=== PATIENT | female | born 1995 | race Caucasian/White ===

== ENCOUNTER 2017-01-04 18:22 | Emergency (ER) | payer OTHER ==
[~2017-01-04] VITALS: Ht 157.5 cm; Wt 53.8 kg
[2017-01-04 18:39] VITALS: TEMP 37.1; O2SAT 100; Ht 157.5 cm; Wt 53.8 kg
[2017-01-04 19:14] LABS: POINT OF CARE TROPONIN I < 0.030 ng/ml (0-0.045)
[2017-01-04 19:15] LABS: BASO % 0.6 %; BASO ABS # 0.06 K/uL (0-0.2); COMPLETE YES; EOS % 7.9 %; HEMATOCRIT 40.6 % (37-47); IG% 0.2 %; LYMPH % 24.7 %; LYMPH ABS # 2.64 K/uL (1.2-3.4); MEAN CELL VOLUME 85.1 fL (80-100); MEAN CORPUSCULAR HEMOGLOBIN 29.4 pg (25-34); MEAN CORPUSCULAR HGB CONC 34.5 g/dl (32-36); MEAN PLATELET VOLUME 10.7 fL (7.4-10.4); MONO % 8.5 %; NEUT % 58.1 %; PLATELET COUNT 247 K/uL (130-400); RED BLOOD COUNT 4.77 M/uL (4.2-5.4); WHITE BLOOD COUNT 10.68 K/uL (4.8-10.8)
[2017-01-04 19:26] LABS: PARTIAL THROMBOPLASTIN RATIO 1.2; PROTHROMBIN TIME (PATIENT) 10.4 SECONDS (9.0-12.0)
--- NOTE | 2017-01-04 19:30 | DIAGNOSTIC IMAGING REPORT ---
CHEST 2 VIEWS ROUTINE HISTORY: 21 years-old Female eval for pna acute atypical chest and back pain with shortness of breath. COMPARISON: None available TECHNIQUE: Frontal and lateral views of the chest FINDINGS: Cardiomediastinal and hilar silhouettes are within normal limits. No pneumothorax, pleural effusion, focal airspace consolidation or overt pulmonary edema. Bones of the chest are grossly intact. IMPRESSION: No acute cardiopulmonary process. No lobar airspace consolidation to suggest pneumonia. The above report was generated using voice recognition software. It may contain grammatical, syntax or spelling errors. Electronically signed by: Chong Hwang M.D. 01/04/2017 7:28 PM Dictated Date/Time: 01/04/2017 7:27 PM
[2017-01-04 19:32] LABS: BUN/CREATININE RATIO 11.5 (10-20); CALCIUM 9.3 mg/dl (8.5-10.1); CREATININE 0.7 mg/dl (0.60-1.20); POTASSIUM 3.7 mmol/L (3.5-5.1)
[2017-01-04] MEDS ORDERED: AZITTAB PO (19:44)
[2017-01-04] MEDS ORDERED: SERT-234 PO (19:54)
[2017-01-04] MEDS ORDERED: BCPILLS PO (19:54)
[2017-01-04 19:58] VITALS: BP 115/76; PULSE 88; O2SAT 98
--- NOTE | 2017-01-04 20:35 | EMERGENCY ROOM VISIT NOTE ---
History Report prepared by Tera: Raffi Haji Under the Supervision of: Dr. Ugo Servin M.D. First contact with patient: 18:41 Chief Complaint: CHEST PAIN Stated Complaint: CHEST PAIN,BACK PAIN,SOB Nursing Triage Summary: Pt reports chest pain since this morning. Feels hard to breath at times. Pt reports cough and congestion for "awhile." History of Present Illness The patient is a 21 year old female who presents to the Emergency Room with complaints of constant centralized chest pain beginning two days ago. Her pain worsened yesterday. Her pain radiates into her back. The patient also complains of a productive cough. Her cough produces a green-yellow sputum. She has had a cough for about 1.5 weeks and states that coughing worsens her pain. The patient describes her pain as a feeling of "tightness". She denies fevers, or leg pain or swelling. She is on control. The patient has no personal of blood clots. Her LNMP was a few weeks ago and was normal timing. She denies any recent prolonged immobilization. Source of History: patient Onset: Two days ago Position: chest (centralized) Quality: other ("tightness") Timing: constant Associated Symptoms: + cough (productive), No fevers Note: The patient denies any leg pain or swelling. Review of Systems See HPI for pertinent positives & negatives. A total of 10 systems reviewed and were otherwise negative. Past Medical & Surgical Medical Problems: (1) No Known Active Medical Problems Family History No pertinent family history stated. Social History Smoking Status: Never Smoker Occupation Status: [employer] student Current/Historical Medications Scheduled Azithromycin (Zithromax Z-Nick), 1 PKT PO UD Control Pills ( Control Pills), 1 TAB PO DAILY Sertraline (Zoloft), 100 MG PO DAILY Allergies Coded Allergies: Iodinated Diagnostic Agents (Unverified Allergy, Unknown, THROAT CLOSES, 01/04/17) Physical Exam Vital Signs Date Time Temp Pulse Resp B/P (MAP) Pulse Ox O2 Delivery O2 Flow Rate FiO2 01/04/17 19:58 88 16 115/76 98 01/04/17 19:21 82 01/04/17 18:39 100 Room Air 01/04/17 18:39 37.1 99 20 159/109 100 Room Air 01/04/17 18:39 100 T-piece Physical Exam Constitutional: Vital signs reviewed. Eyes: Pupils are equal round reactive to light. Conjunctiva are noninjected. ENT: Pharynx is clear without erythema or exudate. Mucous membranes are moist. Neck supple without meningeal signs. Respiratory: Clear to auscultation bilaterally. Breath sounds are equal bilaterally. Cardiovascular: Regular rate and rhythm. No rubs or gallops. GI: Soft, nondistended and nontender. Bowel sounds are present. Musculoskeletal: No peripheral edema. No lower extremity tenderness. Anterior chest wall tenderness to palpation. Integumentary: No cyanosis. Neurological: The patient is awake and alert. No focal deficits. Psychiatric: Normal affect. Medical Decision & Procedures ER Provider Diagnostic Interpretation: X-ray results as stated below per interpretation by me and the radiologist: CHEST 2 VIEWS ROUTINE FINDINGS: Cardiomediastinal and hilar silhouettes are within normal limits. No pneumothorax, pleural effusion, focal airspace consolidation or overt pulmonary edema. Bones of the chest are grossly intact. IMPRESSION: No acute cardiopulmonary process. No lobar airspace consolidation to suggest pneumonia. The above report was generated using voice recognition software. It may contain grammatical, syntax or spelling errors. Electronically signed by: Chong Hwang M.D. 01/04/2017 7:28 PM Laboratory Results 01/04/17 18:50 Red Blood Count 4.77, Mean Corpuscular Volume 85.1, Mean Corpuscular Hemoglobin 29.4, Mean Corpuscular Hemoglobin Concent 34.5, Mean Platelet Volume 10.7, Neutrophils (%) (Auto) 58.1, Lymphocytes (%) (Auto) 24.7, Monocytes (%) (Auto) 8.5, Eosinophils (%) (Auto) 7.9, Basophils (%) (Auto) 0.6, Neutrophils # (Auto) 6.21, Lymphocytes # (Auto) 2.64, Monocytes # (Auto) 0.91, Eosinophils # (Auto) 0.84, Basophils # (Auto) 0.06 01/04/17 18:50 Test 01/04/17 18:46 01/04/17 18:50 01/04/17 18:55 White Blood Count 10.68 K/uL (4.8-10.8) Red Blood Count 4.77 M/uL (4.2-5.4) Hemoglobin 14.0 g/dL (12.0-16.0) Hematocrit 40.6 % (37-47) Mean Corpuscular Volume 85.1 fL (80-100) Mean Corpuscular Hemoglobin 29.4 pg (25-34) Mean Corpuscular Hemoglobin Concent 34.5 g/dl (32-36) Platelet Count 247 K/uL (130-400) Mean Platelet Volume 10.7 fL (7.4-10.4) Neutrophils (%) (Auto) 58.1 % Lymphocytes (%) (Auto) 24.7 % Monocytes (%) (Auto) 8.5 % Eosinophils (%) (Auto) 7.9 % Basophils (%) (Auto) 0.6 % Neutrophils # (Auto) 6.21 K/uL (1.4-6.5) Lymphocytes # (Auto) 2.64 K/uL (1.2-3.4) Monocytes # (Auto) 0.91 K/uL (0.11-0.59) Eosinophils # (Auto) 0.84 K/uL (0-0.5) Basophils # (Auto) 0.06 K/uL (0-0.2) RDW Standard Deviation 41.2 fL (36.4-46.3) RDW Coefficient of Variation 13.3 % (11.5-14.5) Immature Granulocyte % (Auto) 0.2 % Immature Granulocyte # (Auto) 0.02 K/uL (0.00-0.02) Prothrombin Time 10.4 SECONDS (9.0-12.0) Prothromb Time International Ratio 1.0 (0.9-1.1) Activated Partial Thromboplast Time 32.0 SECONDS (21.0-31.0) Partial Thromboplastin Ratio 1.2 Anion Gap 8.0 mmol/L (3-11) Est Creatinine Clear Calc Drug Dose 101.4 ml/min Estimated GFR () 144.6 Estimated GFR (Non- 124.7 BUN/Creatinine Ratio 11.5 (10-20) Calcium Level 9.3 mg/dl (8.5-10.1) Bedside D-Dimer 191 ng/mlFEU (0-450) Bedside Troponin I < 0.030 ng/ml (0-0.045) Laboratory results as reviewed by me. ECG Indication: chest pain Rate (beats per minute): 89 Rhythm: normal sinus Findings: no acute ischemic change, no ectopy ED Course 1841: The patient was evaluated in room A10. A complete history and physical exam was performed. 1934: Upon reevaluation, the patient appeared to have improvement of her symptoms. I discussed mahendra's findings with her. She verbalized agreement of the treatment plan. She prefers to go home on antibiotics. The patient was discharged home. Medical Decision This is a 21-year-old female who presents with chest pain and cough. Differential diagnosis includes acute bronchitis, pleurisy, pericarditis, pneumonia, pulmonary embolism. I did perform a limited focused review of portions of the patient's old chart on the electronic medical record. The patient has had no prior visits to this hospital. I did evaluate the patient as noted above. The patient is presenting with a cough for the past 1-1/2 weeks. It is productive. She also complains of chest pain which is reproducible on palpation. Her only risk factors for pulmonary embolism is control pill use. IV access was established. The patient was placed on a continuous simulation developer. I did order and personally review the patient's 12-lead EKG and chest x-ray as described above. I did order and review the patient's blood work as noted in the electronic medical record. D- dimer and troponin are negative. I did discuss the test results with the patient. She likely has a bronchitis. I did discuss the possibility of antibiotics given her prolonged symptoms. She elected to be treated with antibiotics after discussion with her. She was discharged with a prescription for Zithromax. She will follow up with [facility]. Impression Primary Impression: Bronchitis Additional Impression: Chest wall pain Scribe Attestation The scribe's documentation has been prepared under my direct and personally reviewed by me in its entirety. I confirm that the note above accurately reflects all work, treatment, procedures, and medical decision making performed by me. Departure Information Dispostion Home / Self-Care Prescriptions Azithromycin (ZITHROMAX Z-NICK) 250 Mg Tab 1 PKT PO UD, #1 PKT Prov: Ugo Servin M.D. 01/04/17 Referrals No Doctor, Assigned (PCP) Forms HOME CARE DOCUMENTATION FORM, IMPORTANT VISIT INFORMATION Patient Instructions Bronchitis Acute, [facility] Additional Instructions You have been examined and treated today on an emergency basis only. This is not a substitute for, or an effort to provide, complete comprehensive medical care. It is impossible to recognize and treat all injuries or illnesses in a single emergency department visit. It is therefore important that you follow up closely with [facility]. Call as soon as possible for an appointment. Return for worsening symptoms or if you develop fever, vomiting, or any other concerning symptoms. Problem Qualifiers
== END 2017-01-04 19:59 | disposition home or self-care (01) ==
LOC: C.EDB 18:24 → C.EDA 19:59
DX: J40 Bronchitis, not specified as acute or chronic (principal); R07.89 Other chest pain; Z91.041 Radiographic dye allergy status

== ENCOUNTER 2017-11-12 23:43 | Emergency (ER) | payer OTHER ==
[~2017-11-12] VITALS: Ht 157.5 cm; Wt 60.8 kg
[~2017-11-12 23:43] MED LIST: BCPILLS PO; SERT-234 PO
[2017-11-12 23:47] VITALS: TEMP 37.1
--- NOTE | 2017-11-13 00:14 | EMERGENCY ROOM VISIT NOTE ---
History Report prepared by Tera: Ignacio Noel Under the Supervision of: Dr. Jossy Woody D.O. First contact with patient: 23:51 Chief Complaint: EAR PAIN Stated Complaint: EAR PAIN History of Present Illness The patient is a 21 year old female who presents to the Emergency Room with complaints of worsening left ear pain beginning two days ago. She notes her current discomfort is a 6/10 in severity. The patient states the top of her left ear started hurting and felt larger than right. She reports yesterday morning it felt as if her ear was more swollen, more painful, and hot to the touch. The patient notes she was evaluated by [facility] and was given an oral antibiotic for possible cellulitis or a bug bite. She states she has taken 4 doses. This is Bactrim. The patient reports her pain has moved to the back of her head and down her neck. She notes a slight fever of 99 F. The patient notes her LNMP was October 26. She denies being bitten, left ear piercing, history of diabetes, pertinent past medical history, abdominal pain, recent tick bites, other skin lesions, being around anyone with the Mumps, and recent insect bites. Source of History: patient Onset: two days ago Position: ear (left) Symptom Intensity: 6/10 Timing: worsening Associated Symptoms: + fevers (mild - 99), + neck pain (and back of head), No abdominal pain Note: Associated symptoms: swollen, hot to touch Denies: being bitten, left ear piercing, history of diabetes, pertinent past medical history, abdominal pain, recent tick bites, other skin lesions, being around anyone with the Mumps, and recent insect bites. Review of Systems See HPI for pertinent positives & negatives. A total of 10 systems reviewed and were otherwise negative. Past Medical & Surgical Medical Problems: (1) No Known Active Medical Problems Family History Patient reports no known family medical history. Social History Smoking Status: Never Smoker Marital Status: single Occupation Status: [employer] student Current/Historical Medications Scheduled Amoxicillin & Pot Clavulanate (Augmentin 875-125 mg), 875 MG PO BID Control Pills ( Control Pills), 1 TAB PO DAILY Sertraline (Zoloft), 100 MG PO DAILY Allergies Coded Allergies: Iodinated Diagnostic Agents (Unverified Allergy, Unknown, THROAT CLOSES, ) Physical Exam Vital Signs Date Time Temp Pulse Resp B/P (MAP) Pulse Ox O2 Delivery O2 Flow Rate FiO2 11/13/17 04:16 82 20 139/98 98 11/13/17 03:02 85 18 145/99 97 Room Air 11/13/17 01:26 77 18 138/96 98 Room Air 11/13/17 00:41 99 Room Air 11/13/17 00:41 80 20 141/108 99 Room Air 11/12/17 23:47 37.1 98 18 141/95 94 Room Air Physical Exam HEENT: Head - normocephalic and atraumatic Pupils are equal, round, and reactive to light. Extraocular eye muscles are intact, and sclera are anicteric. Nose - moist nasal mucosa without discharge. Mouth - moist buccal mucosa. Oropharynx is nonerythematous and there is no tonsillar exudate or edema noted. Ear - Pain and erythema over the mastoid and parotid. Pinna of left ear is erythematous and edematous. Small vesicular lesions. Neck: Supple; no JVD, nuchal rigidity, cervical lymphadenopathy. Heart: Regular rate and rhythm. There is a normal S1 and S2 with no murmurs, clicks, or gallops appreciated. Lungs: Clear to auscultation bilaterally with no wheezes, rales, or rhonchi. Abdomen: Soft, completely nontender, nondistended, with good bowel sounds. There are no palpable pulsatile masses or hepatosplenomegaly. There is no guarding, rigidity, or rebound noted. Extremities: No evidence of cyanosis, clubbing, or edema. There are easily palpable peripheral pulses. Skin: warm and dry with good turgor and no rashes. Medical Decision & Procedures ER Provider Diagnostic Interpretation: Radiology results as stated below per my review and the radiologist's interpretation: CT NECK: There is mild stranding of the left parotid gland and the surrounding subcutaneous tissue likely representing parotiditis. No underlying fluid collection. The mastoids are clear. There is mild mucosal thickening of the paranasal sinuses. The visualized brain is unremarkable. Radiologist: Yogi Marmolejo MD Laboratory Results 11/13/17 00:35 Red Blood Count 4.61, Mean Corpuscular Volume 84.8, Mean Corpuscular Hemoglobin 28.6, Mean Corpuscular Hemoglobin Concent 33.8, Mean Platelet Volume 10.8, Neutrophils (%) (Auto) 61.8, Lymphocytes (%) (Auto) 22.4, Monocytes (%) (Auto) 6.4, Eosinophils (%) (Auto) 8.9, Basophils (%) (Auto) 0.3, Neutrophils # (Auto) 7.01, Lymphocytes # (Auto) 2.54, Monocytes # (Auto) 0.72, Eosinophils # (Auto) 1.01, Basophils # (Auto) 0.03 11/13/17 00:35 Test 11/13/17 00:35 11/13/17 00:41 11/13/17 02:50 White Blood Count 11.33 K/uL (4.8-10.8) Red Blood Count 4.61 M/uL (4.2-5.4) Hemoglobin 13.2 g/dL (12.0-16.0) Hematocrit 39.1 % (37-47) Mean Corpuscular Volume 84.8 fL (80-100) Mean Corpuscular Hemoglobin 28.6 pg (25-34) Mean Corpuscular Hemoglobin Concent 33.8 g/dl (32-36) Platelet Count 252 K/uL (130-400) Mean Platelet Volume 10.8 fL (7.4-10.4) Neutrophils (%) (Auto) 61.8 % Lymphocytes (%) (Auto) 22.4 % Monocytes (%) (Auto) 6.4 % Eosinophils (%) (Auto) 8.9 % Basophils (%) (Auto) 0.3 % Neutrophils # (Auto) 7.01 K/uL (1.4-6.5) Lymphocytes # (Auto) 2.54 K/uL (1.2-3.4) Monocytes # (Auto) 0.72 K/uL (0.11-0.59) Eosinophils # (Auto) 1.01 K/uL (0-0.5) Basophils # (Auto) 0.03 K/uL (0-0.2) RDW Standard Deviation 41.1 fL (36.4-46.3) RDW Coefficient of Variation 13.3 % (11.5-14.5) Immature Granulocyte % (Auto) 0.2 % Immature Granulocyte # (Auto) 0.02 K/uL (0.00-0.02) Anion Gap 9.0 mmol/L (3-11) Est Creatinine Clear Calc Drug Dose 83.8 ml/min Estimated GFR () 103.9 Estimated GFR (Non- 89.6 BUN/Creatinine Ratio 10.9 (10-20) Calcium Level 8.5 mg/dl (8.5-10.1) Total Bilirubin 0.2 mg/dl (0.2-1) Aspartate Amino Transf (AST/SGOT) 12 U/L (15-37) Alanine Aminotransferase (ALT/SGPT) 20 U/L (12-78) Alkaline Phosphatase 80 U/L (45-117) Total Protein 8.3 gm/dl (6.4-8.2) Albumin 3.5 gm/dl (3.4-5.0) Globulin 4.8 gm/dl (2.5-4.0) Albumin/Globulin Ratio 0.7 (0.9-2) Bedside Lactic Acid Venous 0.51 mmol/L (0.90-1.70) Influenza Type A (RT-PCR) Neg for Influ A (NEG) Influenza Type B (RT-PCR) Neg for Influ B (NEG) Laboratory results per my review. Medications Administered Medications (Trade) Dose Ordered Sig/Alex Route Start Time Stop Time Status Last Admin Dose Admin Ketorolac Tromethamine (Toradol Inj) 30 mg NOW STAT IV 11/13/17 00:16 11/13/17 00:18 DC 11/13/17 00:40 30 MG Ceftriaxone Sodium (Rocephin Inj) 1 gm NOW STAT IV 11/13/17 02:22 11/13/17 02:23 DC 11/13/17 03:02 1 GM Procedure 0016: Ordered Toradol 30mg IV 0222: Ordered Rocephin 1gm IV ED Course 0008: The patient was evaluated in room C10. A complete history and physical examination were performed. Nursing notes and previous electronic medical records were reviewed. IV lock was established and labs were drawn as above. A septic protocol was performed. 0016: Ordered Toradol 30mg IV 0220: I reevaluated the patient and updated her of her current test results. She is getting a dose of IV Rocephin. 0401: I discussed findings and results with the patient. She verbalized agreement of the treatment plan. The patient was discharged home. Medical Decision The patient is a 21 year old female who presents to the Emergency Department with worsening left ear pain. Differential diagnosis includes parotitis, otitis media, otitis externa, cellulitis of pinna, mastoiditis. mumps. Lab results show: WBC of 11.3, no left shift, stable H&H, normal lactic acid, normal renal function and glucose. This is a 21-year-old female patient has been treated for left ear cellulitis to the emergency department with worsening symptoms despite taking Bactrim. On physical exam, the patient has moderate pain with palpation over the left parotid gland and mastoid. CT scan was performed and this revealed parotitis with no obvious mastoiditis. The patient was given IV Toradol which did seem to relieve her pain. She was also given IV Rocephin. Medication Reconcilliation Current Medication List: was personally reviewed by me Blood Pressure Screening Patient's blood pressure: Elevated blood pressure Impression Primary Impression: Parotitis Additional Impression: Facial cellulitis Scribe Attestation The scribe's documentation has been prepared under my direction and personally reviewed by me in its entirety. I confirm that the note above accurately reflects all work, treatment, procedures, and medical decision making performed by me. Departure Information Dispostion Home / Self-Care Prescriptions Amoxicillin & Pot Clavulanate (Augmentin 875-125 mg) 1 Tab Tab 875 MG PO BID, #20 TAB Prov: Jossy Woody D.O. 11/13/17 Referrals [facility] (PCP) Forms HOME CARE DOCUMENTATION FORM, IMPORTANT VISIT INFORMATION, WORK / SCHOOL INSTRUCTIONS Patient Instructions [facility] Additional Instructions Rest. You should quarantine yourself until contacted fy JENNIFER Stop the bactrim Take Augmentin - every 12 hours. Return to the ER for worsening symptoms Problem Qualifiers
[2017-11-13] MEDS ORDERED: KETOROLAC TROMETHAMINE 30 MG/ML VIAL IV STA (00:16)
[2017-11-13 00:41] VITALS: O2SAT 99; Ht 157.5 cm; Wt 60.8 kg
[2017-11-13 00:51] LABS: BASO % 0.3 %; BASO ABS # 0.03 K/uL (0-0.2); EOS % 8.9 %; EOS ABS # 1.01 K/uL (0-0.5); HEMATOCRIT 39.1 % (37-47); HEMOGLOBIN 13.2 g/dL (12.0-16.0); IG# 0.02 K/uL (0.00-0.02); LYMPH % 22.4 %; LYMPH ABS # 2.54 K/uL (1.2-3.4); MEAN CELL VOLUME 84.8 fL (80-100); MEAN CORPUSCULAR HEMOGLOBIN 28.6 pg (25-34); MEAN CORPUSCULAR HGB CONC 33.8 g/dl (32-36); MEAN PLATELET VOLUME 10.8 fL (7.4-10.4); MONO % 6.4 %; MONO ABS # 0.72 K/uL (0.11-0.59); NEUT % 61.8 %; NEUT ABS # 7.01 K/uL (1.4-6.5); PLATELET COUNT 252 K/uL (130-400); RED CELL DISTRIBUTION WIDTH CV 13.3 % (11.5-14.5); RED CELL DISTRIBUTION WIDTH SD 41.1 fL (36.4-46.3); WHITE BLOOD COUNT 11.33 K/uL (4.8-10.8)
[2017-11-13 01:16] LABS: ALBUMIN 3.5 gm/dl (3.4-5.0); CALCIUM 8.5 mg/dl (8.5-10.1); CREATININE 0.92 mg/dl (0.60-1.20); POTASSIUM 3.7 mmol/L (3.5-5.1); TOTAL PROTEIN 8.3 gm/dl (6.4-8.2)
[2017-11-13] MEDS ORDERED: CEFTRIAXONE SOD INJ 1 GM ADDVIAL IV STA (02:22)
[2017-11-13] MEDS ORDERED: AMOX875T PO (04:01)
[2017-11-13 04:16] VITALS: BP 139/98; PULSE 82; O2SAT 98
[2017-11-13 04:43] LABS: INFLUENZA A PCR Neg for Influ A (NEG); INFLUENZA B PCR Neg for Influ B (NEG)
--- NOTE | 2017-11-13 08:11 | DIAGNOSTIC IMAGING REPORT ---
SOFT TISSUE NECK WITHOUT HISTORY: 21 years-old Female eval for parotitis/mastoiditis acute left-sided facial pain and swelling COMPARISON: None available TECHNIQUE: Multiple axial CT images of the soft tissues of the neck were obtained without the use of IV contrast. A dose lowering technique was used consistent with the principals of NOREEN. FINDINGS: There is mild interstitial and periglandular edema about the left parotid gland with subcutaneous edema tracking about the left neck and platysma myofascial plane. No drainable fluid collection, suspicious mass or obstructing salivary gland calculus. The right parotid and bilateral submandibular glands are unremarkable. Mildly prominent bilateral level 1 lymph nodes are seen measuring up to 8 mm in short axis on the right. These are likely reactive. The nasopharynx, oral pharynx and hypopharynx appear widely patent. No peritonsillar abscess. Mild hypertrophy of the adenoid tonsils. Residual thymic tissue about the anterior mediastinum. Homogeneous appearance of the thyroid. The imaged lung apices appear clear. Image intracranial structures demonstrate no acute abnormality. Mastoid air cells and middle ear cavities appear clear. Mild mucoperiosteal thickening about the maxillary sinuses with moderate ethmoid sinus disease. Moderate mucosal thickening of the right sphenoid sinus with aerosolized secretions. Unerupted bilateral third maxillary molars. Bones appear intact. IMPRESSION: 1. Mild interstitial and periglandular edema about the left parotid gland with subcutaneous edema tracking along the left neck and platysma myofascial plane suggests acute parotiditis. No ductal dilation or obstructing sialolith. 2. Mildly prominent level I lymph nodes, likely reactive. The above report was generated using voice recognition software. It may contain grammatical, syntax or spelling errors. Electronically signed by: Chong Hwang M.D. 11/13/2017 8:09 AM Dictated Date/Time: 11/13/2017 8:05 AM
== END 2017-11-13 04:13 | disposition home or self-care (01) ==
LOC: C.EDB 23:45 → C.EDC 11-13 04:13
DX: K11.20 Sialoadenitis, unspecified (principal); L03.211 Cellulitis of face; Z79.3 Long term (current) use of hormonal contraceptives; Z79.899 Other long term (current) drug therapy; Z91.041 Radiographic dye allergy status